=== PATIENT | female | born 1975 | race African-American/Black ===

== ENCOUNTER 2017-09-05 14:27 | Inpatient (IN) | payer OTHER ==
[2017-09-05 15:42] VITALS: BMI 33.8
--- NOTE | 2017-09-05 18:18 | HP ---
Admission ROS [facility] - [facility] Chief Complaint: I WANT TO GO TO REHAB Allergies/Adverse Reactions: Allergies Allergy/AdvReac Type Severity Reaction Status Date / Time No Known Allergies Allergy Verified 09/05/17 17:16 History of Present Illness: 42 YEARS OLD FEMALE WITH LONG HISTORY OF COCAINE NICOTINE DEPENDENCE HAS ASTHMA DIABETES II HYPERTENSION BIPOLAR II KNEES WEAKNESS GERD IS ADMITTED TO REHAB Exam Limitations: No Limitations - Ebola screening Have you traveled outside of the country in the last 21 days: No Have you had contact with anyone from an Ebola affected area: No Have you been sick,other than usual withdrawal symptoms: No Do you have a fever: No - Review of Systems Constitutional: Weight Stable EENT: reports: No Symptoms Reported Respiratory: reports: No Symptoms reported Cardiac: reports: No Symptoms Reported GI: reports: No Symptoms Reported : reports: No Symptoms Reported Musculoskeletal: reports: Joint Pain (KNEES = FELL "FELL TWO MONTHS AGO"), Muscle Weakness (CANE) Integumentary: reports: No Symptoms Reported Neuro: reports: No Symptoms reported Endocrine: reports: No Symptoms Reported Hematology: reports: No Symptoms Reported Psychiatric: reports: Judgement Intact, Orientated x3, Anxious, Depressed Other Systems: Reviewed and Negative Patient History - Patient Medical History Hx Anemia: No Hx Asthma: Yes Hx Chronic Obstructive Pulmonary Disease (COPD): No Hx Cancer: No Hx Cardiac Disorders: No Hx Congestive Heart Failure: No Hx Hypertension: Yes Hx Hypercholesterolemia: No Hx Pacemaker: No HX Cerebrovascular Accident: No Hx Seizures: No Hx Dementia: No Hx Diabetes: Yes Hx Gastrointestinal Disorders: Yes Hx Liver Disease: No Hx Genitourinary Disorders: No Hx Sexually Transmitted Disorders: No Hx Renal Disease (ESRD): No Hx Thyroid Disease: No Hx Human Immunodeficiency Virus (HIV): No Hx Hepatitis C: No Hx Depression: No Hx Suicide Attempt: Yes (2006 CUT WRIST) Hx Bipolar Disorder: Yes Hx Schizophrenia: No - Patient Surgical History Past Surgical History: No - PPD History Previous Implant?: Yes Documented Results: Negative w/o proof Implanted On Prior [facility] Admission?: No PPD to be Administered?: Yes - Reproductive History Patient is a Female of Child Bearing Age (11 -55 yrs old): Yes Last Menstrual Period: 03/06/17 Patient : No - Smoking Cessation Smoking history: Current every day smoker Have you smoked in the past 12 months: Yes Aproximately how many cigarettes per day: 20 Cigars Per Day: 0 Hx Chewing Tobacco Use: No Initiated information on smoking cessation: Yes 'Breaking Loose' booklet given: 09/05/17 - Substance & Tx. History Hx Alcohol Use: No Hx Substance Use: Yes Substance Use Type: Cocaine Hx Substance Use Treatment: Yes (2010) - Substances Abused Cocaine Route: Smoking Frequency: Daily Amount used: 300$ Age of first use: 17 Date of Last Use: 08/22/17 Family Disease History - Family Disease History Family Disease History: CA: Mother (), Other: Father (/KILLED), Mother Admission Physical Exam [facility] - Vital Signs Vital Signs: Vital Signs - 24 hr 09/05/17 15:40 Temperature 96.9 F L Pulse Rate 102 H Respiratory 18 Rate Blood Pressure 104/70 - Physical General Appearance: Yes: No Apparent Distress, Appropriately Dressed, Obese HEENTM: Yes: Hearing grossly Normal, Normal ENT Inspection, Normocephalic, Normal Voice Respiratory: Yes: Chest Non-Tender, Lungs Clear, Normal Breath Sounds, No Respiratory Distress, No Accessory Muscle Use Neck: Yes: Supple, Trachea in good position Breast: Yes: Breasts Symetrical Cardiology: Yes: Regular Rhythm, S1, S2, Tachycardia Abdominal: Yes: Normal Bowel Sounds, Non Tender, Soft Genitourinary: Yes: Within Normal Limits Back: Yes: Normal Inspection Musculoskeletal: Yes: full range of Motion, Gait Steady, Muscle Pain (KNEES PAIN ) Extremities: Yes: Normal Range of Motion (SLOW), Non-Tender Neurological: Yes: Fully Oriented, Alert, Motor Strength 5/5, Normal Response, Depressed Affect Integumentary: Yes: Warm Lymphatic: Yes: Within Normal Limits - Diagnostic (1) Cocaine dependence, uncomplicated Current Visit: Yes Status: Acute (2) Asthma Current Visit: Yes Status: Chronic Qualifiers: Asthma severity: mild Asthma persistence: intermittent Asthma complication type: with status asthmaticus Qualified Code(s): J45.22 - Mild intermittent asthma with status asthmaticus (3) Diabetes mellitus type II, non insulin dependent Current Visit: Yes Status: Chronic (4) Hypertension Current Visit: Yes Status: Chronic Qualifiers: Hypertension type: essential hypertension Qualified Code(s): I10 - Essential (primary) hypertension (5) Bipolar II disorder Current Visit: Yes Status: Suspected (6) GERD (gastroesophageal reflux disease) Current Visit: Yes Status: Chronic Qualifiers: Esophagitis presence: without esophagitis Qualified Code(s): K21.9 - Gastro -esophageal reflux disease without esophagitis (7) Use of cane as ambulatory aid Current Visit: Yes Status: Chronic Comment: KNEES WEAKNESS FROM FALL "FEW MONTHS AGO" (8) Nicotine dependence Current Visit: Yes Status: Acute Qualifiers: Nicotine product type: cigarettes Substance use status: in withdrawal Qualified Code(s): F17.213 - Nicotine dependence, cigarettes, with withdrawal Cleared for Admission [facility] - Detox or Rehab [facility] Level of Care: Observation Bed Detox Regimen/Protocol: Not Applicable Claeared for Rehab Admission: Yes [facility] Breath Alcohol Content Breath Alcohol Content: 0 Urine Pregancy Test - Result Urine Test Results: Negative- NO Line Present Urine Drug Screen - Results Drug Screen Negative: Yes Inpatient Rehab Admission - Initial Determination Are CD services needed?: Yes Free of communicable disease: Yes Not in need of hospitalization: Yes - Rehab Admission Criteria Previous failed treatment: Yes Poor recovery environment: Yes Comorbidities: Yes Lacks judgement: No Patient is meeting Inpatient Rehab admission criteria:: Yes
[2017-09-05] MEDS ORDERED: MENTHOL/PHENOL 1 EACH UD MM PRN (18:21)
[2017-09-05] MEDS ORDERED: LOPERAMIDE HCL 2 MG CAPSULE PO PRN (18:21)
[2017-09-05] MEDS ORDERED: MAG HYDROX/AL HYDROX/SIMETH 30 ML UNIT-DOSE CUP PO PRN (18:21)
[2017-09-05] MEDS ORDERED: guaiFENesin/D-METHORPHAN HB 10 ML UNIT-DOSE CUPS PO PRN (18:21)
[2017-09-05] MEDS ORDERED: MAGNESIUM HYDROX 2400MG/30ML ORAL SUSPENSION 30 ML CUP PO PRN (18:21)
[2017-09-05] MEDS ORDERED: ACETAMINOPHEN 325 MG TABLET (FP) PO PRN (18:21)
[2017-09-05] MEDS ORDERED: MAGNESIUM CITRATE 300 ML BOTTLE PO PRN (18:21)
[2017-09-05] MEDS ORDERED: P-EPHED 60MG/TRIPROLIDI 2.5MG TABLET PO PRN (18:21)
[2017-09-05] MEDS ORDERED: ALBUTEROL SO4 18 GM HFA INHALER IH PRN (18:22)
[2017-09-05] MEDS ORDERED: ALBUTEROL SO4 0.083% IH SOL 2.5 MG/3 ML VIAL.NEB. NEB PRN (18:27)
[2017-09-05] MEDS: THIAMINE HCL 100 MG TABLET (FP) PO SCH (21:32)
[2017-09-05] MEDS: RANITIDINE HCL 150 MG TABLET (FP) PO SCH (21:32)
[2017-09-05] MEDS: QUEtiapine FUMARATE 200 MG TABLET PO SCH (21:32)
[2017-09-05] MEDS: INSULIN SLIDING SCALE (NOVOLOG) 1 VIAL SQ SCH (21:33)
[2017-09-05] MEDS: DIVALPROEX SODIUM 500 MG TABLET E.C. PO SCH (21:34)
[2017-09-05] MEDS: NICOTINE POLACRILEX 4 MG GUM BUC PRN (21:35)
[2017-09-06 02:20] LABS: URINE APPEARANCE CLOUDY; URINE BILIRUBIN NEGATIVE (NEGATIVE); URINE BLOOD NEGATIVE (NEGATIVE); URINE COLOR AMBER; URINE GLUCOSE (UA) NEGATIVE (NEGATIVE); URINE KETONE NEGATIVE (NEGATIVE); URINE NITRITE NEGATIVE (NEGATIVE)
[2017-09-06 02:28] LABS: URINE LEUK ESTERASE 1+ (NEGATIVE); URINE PROTEIN 1+ (NEGATIVE)
[2017-09-06 02:37] LABS: EPI CELLS MODERATE /HPF (FEW); URINE BACTERIA RARE /hpf (NONE SEEN); URINE MUCUS MANY
[2017-09-06] MEDS: INSULIN SLIDING SCALE (NOVOLOG) 1 VIAL SQ SCH ×4 (06:54→21:30)
[2017-09-06] MEDS: metFORMIN HCL 500 MG TABLET (FP) PO SCH (06:54)
--- NOTE | 2017-09-06 09:52 | EKG ---
Test Reason : Blood Pressure : / mmHG Vent. Rate : 083 BPM Atrial Rate : 083 BPM P-R Int : 132 ms QRS Dur : 086 ms QT Int : 398 ms P-R-T Axes : 062 031 043 degrees QTc Int : 467 ms NORMAL SINUS RHYTHM NORMAL ECG NO PREVIOUS ECGS AVAILABLE Confirmed by ISIS DECKER MD ([id number]) on 09/06/2017 9:51:40 AM Referred By: Confirmed By:ISIS DECKER MD
[2017-09-06 09:56] LABS: HEMATOCRIT 38.3 % (32.4-45.2); HEMOGLOBIN 12.1 GM/dL (10.7-15.3); MCH 24.6 pg (25.7-33.7); MCHC 31.7 g/dl (32.0-36.0); MEAN CELL VOLUME 77.5 fl (80-96); MEAN PLT VOLUME 9.2 fl (7.5-11.1); PLATELET COUNT 219 K/MM3 (134-434); RBC 4.94 M/mm3 (3.60-5.2); RDW 16.5 % (11.6-15.6); WHITE BLOOD COUNT 7.3 K/mm3 (4.0-10.0)
[2017-09-06 10:02] LABS: CHLORIDE 101 mmol/L (98-107); POTASSIUM 3.1 mmol/L (3.5-5.1); SODIUM 141 mmol/L (136-145)
[2017-09-06 10:18] LABS: ALBUMIN 3.2 g/dl (3.4-5.0); ALK PHOS 76 U/L (45-117); ANION GAP 7 (8-16); BILIRUBIN,TOTAL 0.3 mg/dL (0.2-1.0); BLOOD UREA NITROGEN 10 mg/dL (7-18); CALCIUM 8.3 mg/dL (8.5-10.1); CO2 33 mmol/L (21-32); CREATININE 0.5 mg/dL (0.55-1.02); GLUCOSE,RANDOM 71 mg/dL (74-106); SGOT/AST 8 U/L (15-37); SGPT/ALT 12 U/L (12-78); TOT PROT 6.3 g/dl (6.4-8.2)
[2017-09-06] MEDS: DIVALPROEX SODIUM 500 MG TABLET E.C. PO SCH ×2 (11:18→21:29)
[2017-09-06] MEDS: PRENATAL VITAMINS W/ FOLIC ACID TABLET (FP) PO SCH (11:18)
[2017-09-06] MEDS: amLODIPine BESYLATE 10 MG TABLET (FP) PO SCH (11:18)
[2017-09-06] MEDS: SERTRALINE HCL 50 MG TABLET (FP) PO SCH (11:18)
[2017-09-06] MEDS: RANITIDINE HCL 150 MG TABLET (FP) PO SCH ×2 (11:18→21:30)
[2017-09-06] MEDS: LISINOPRIL 10 MG TABLET (FP) PO SCH (11:19)
[2017-09-06] MEDS: NICOTINE 21 MG/24 HOURS TOPICAL PATCH TD SCH (11:19)
--- NOTE | 2017-09-06 11:55 | HP ---
Psychiatrist Admission - Data Date of interview: 09/06/17 Admission source: [facility] Identifying data: This is the first admission to [address] [place] [address]; itation for this 42 years old AA mother of 5 grown children,homeless, supported y SSI. Medical History: Significant for DM,GERD,HTN,Chronic arthritis,BA. Psychiatric History: Reports first contact with psychiatrist at 14 years old when she was admitted to [facility] in [facility] due to first psychotic episode.patient was placed on medications but no recollections which ones she was on.She was dx with Bipolar disorder.Patient reports about 15 psychiatric hospitalizations.Most recent was in Aug 2015 to one of the Hospitals in [facility] due to severe depression with suicidal ideas.Patient is under care of psychiatrist at [facility] in [facility].She is on Seroquel 200 mg po hs,Zoloft 100 mg po daily and Depakote 500 mg po bid. Physical/Sexual Abuse/Trauma History: denies any abuse history Vital Signs: Vital Signs - 24 hr 09/05/17 09/05/17 09/06/17 15:40 19:10 00:30 Temperature 96.9 F L 97.7 F Pulse Rate 102 H 90 Respiratory 18 18 18 Rate Blood Pressure 104/70 144/89 09/06/17 09/06/17 09/06/17 03:30 07:11 09:20 Temperature 97.4 F L Pulse Rate 82 97 H Respiratory 20 18 Rate Blood Pressure 136/90 139/99 Allergies/Adverse Reactions: Allergies Allergy/AdvReac Type Severity Reaction Status Date / Time No Known Allergies Allergy Verified 09/05/17 17:16 Date of last physical exam: 09/05/17 Concur with the findings of this exam: Yes - Substance Abuse/Tx History Hx Alcohol Use: Yes (reports drinking since young age) Hx Substance Use: Yes (cocaine /crack since 17 yo,$300 daily) Substance Use Type: Alcohol, Cocaine Hx Substance Use Treatment: Yes (completed group home treatment a few years ago, longest abstinence 4 years) Mental Status Exam - Mental Status Exam Alert and Oriented to: Time, Place, Person Cognitive Function: Grossly Intact Patient Appearance: Unkempt Mood: Sad Affect: Mood Congruent, Constricted Patient Behavior: Fatigued, Cooperative Speech Pattern: Clear Voice Loudness: Mildly Soft/Quiet Thought Process: Goal Oriented Thought Disorder: Being Controlled Hallucinations: Denies Suicidal Ideation: Denies Homicidal Ideation: Denies Insight/Judgement: Fair Sleep: Fair Appetite: Good Muscle strength/Tone: Normal Gait/Station: Normal Psychiatric Findings - Problem List ([place] 1, 2,3) (1) Cocaine dependence, uncomplicated Current Visit: Yes Status: Chronic (2) Asthma Current Visit: Yes Status: Chronic Qualifiers: Asthma severity: mild Asthma persistence: intermittent Asthma complication type: with status asthmaticus Qualified Code(s): J45.22 - Mild intermittent asthma with status asthmaticus (3) Diabetes mellitus type II, non insulin dependent Current Visit: Yes Status: Chronic (4) Hypertension Current Visit: Yes Status: Chronic Qualifiers: Hypertension type: essential hypertension Qualified Code(s): I10 - Essential (primary) hypertension (5) Bipolar II disorder Current Visit: Yes Status: Suspected (6) GERD (gastroesophageal reflux disease) Current Visit: Yes Status: Chronic Qualifiers: Esophagitis presence: without esophagitis Qualified Code(s): K21.9 - Gastro -esophageal reflux disease without esophagitis (7) Nicotine dependence Current Visit: Yes Status: Acute Qualifiers: Nicotine product type: cigarettes Substance use status: in withdrawal Qualified Code(s): F17.213 - Nicotine dependence, cigarettes, with withdrawal (8) Alcohol dependence Current Visit: Yes Status: Chronic - Initial Treatment Plan Initial Treatment Plan: Continue current medications as per plan.Will monitor progress.
[2017-09-06] MEDS: NAPROXEN 500 MG TABLET (FP) PO PRN (21:30)
[2017-09-06] MEDS: THIAMINE HCL 100 MG TABLET (FP) PO SCH (21:30)
[2017-09-06] MEDS: QUEtiapine FUMARATE 200 MG TABLET PO SCH (21:30)
[2017-09-06] MEDS: NICOTINE POLACRILEX 4 MG GUM BUC PRN (21:32)
[2017-09-07] MEDS: INSULIN SLIDING SCALE (NOVOLOG) 1 VIAL SQ SCH ×3 (06:57→17:13)
[2017-09-07] MEDS: metFORMIN HCL 500 MG TABLET (FP) PO SCH (06:57)
[2017-09-07] MEDS: NICOTINE 21 MG/24 HOURS TOPICAL PATCH TD SCH (10:05)
[2017-09-07] MEDS: RANITIDINE HCL 150 MG TABLET (FP) PO SCH ×2 (10:06→21:24)
[2017-09-07] MEDS: DIVALPROEX SODIUM 500 MG TABLET E.C. PO SCH ×2 (10:06→21:23)
[2017-09-07] MEDS: PRENATAL VITAMINS W/ FOLIC ACID TABLET (FP) PO SCH (10:06)
[2017-09-07] MEDS: amLODIPine BESYLATE 10 MG TABLET (FP) PO SCH (10:06)
[2017-09-07] MEDS: LISINOPRIL 10 MG TABLET (FP) PO SCH (10:06)
[2017-09-07] MEDS: SERTRALINE HCL 50 MG TABLET (FP) PO SCH (10:07)
[2017-09-07] MEDS: NICOTINE POLACRILEX 4 MG GUM BUC PRN ×3 (10:08→21:25)
[2017-09-07] MEDS: THIAMINE HCL 100 MG TABLET (FP) PO SCH (21:23)
[2017-09-07] MEDS: QUEtiapine FUMARATE 200 MG TABLET PO SCH (21:24)
[2017-09-08] MEDS: INSULIN SLIDING SCALE (NOVOLOG) 1 VIAL SQ SCH ×2 (06:52→17:05)
[2017-09-08] MEDS: metFORMIN HCL 500 MG TABLET (FP) PO SCH (06:52)
[2017-09-08] MEDS: DIVALPROEX SODIUM 500 MG TABLET E.C. PO SCH ×2 (10:11→21:20)
[2017-09-08] MEDS: NICOTINE 21 MG/24 HOURS TOPICAL PATCH TD SCH (10:12)
[2017-09-08] MEDS: LISINOPRIL 10 MG TABLET (FP) PO SCH (10:12)
[2017-09-08] MEDS: amLODIPine BESYLATE 10 MG TABLET (FP) PO SCH (10:12)
[2017-09-08] MEDS: RANITIDINE HCL 150 MG TABLET (FP) PO SCH ×2 (10:12→21:20)
[2017-09-08] MEDS: PRENATAL VITAMINS W/ FOLIC ACID TABLET (FP) PO SCH (10:12)
[2017-09-08] MEDS: SERTRALINE HCL 50 MG TABLET (FP) PO SCH (10:14)
[2017-09-08] MEDS: NICOTINE POLACRILEX 4 MG GUM BUC PRN ×5 (10:14→21:21)
[2017-09-08] MEDS: NAPROXEN 500 MG TABLET (FP) PO PRN (10:14)
[2017-09-08] MEDS: QUEtiapine FUMARATE 200 MG TABLET PO SCH (21:20)
[2017-09-08] MEDS: THIAMINE HCL 100 MG TABLET (FP) PO SCH (21:20)
[2017-09-09] MEDS: INSULIN SLIDING SCALE (NOVOLOG) 1 VIAL SQ SCH ×2 (06:59→17:14)
[2017-09-09] MEDS: metFORMIN HCL 500 MG TABLET (FP) PO SCH (06:59)
[2017-09-09] MEDS: RANITIDINE HCL 150 MG TABLET (FP) PO SCH ×2 (09:49→21:33)
[2017-09-09] MEDS: DIVALPROEX SODIUM 500 MG TABLET E.C. PO SCH ×2 (09:49→21:33)
[2017-09-09] MEDS: PRENATAL VITAMINS W/ FOLIC ACID TABLET (FP) PO SCH (09:49)
[2017-09-09] MEDS: SERTRALINE HCL 50 MG TABLET (FP) PO SCH (09:49)
[2017-09-09] MEDS: LISINOPRIL 10 MG TABLET (FP) PO SCH (09:50)
[2017-09-09] MEDS: amLODIPine BESYLATE 10 MG TABLET (FP) PO SCH (09:51)
[2017-09-09] MEDS: NICOTINE 21 MG/24 HOURS TOPICAL PATCH TD SCH (09:51)
[2017-09-09] MEDS: NICOTINE POLACRILEX 4 MG GUM BUC PRN ×3 (09:52→21:34)
[2017-09-09] MEDS: THIAMINE HCL 100 MG TABLET (FP) PO SCH (21:33)
[2017-09-09] MEDS: QUEtiapine FUMARATE 200 MG TABLET PO SCH (21:33)
[2017-09-10] MEDS ORDERED: cloNIDine HCL 0.1 MG TABLET PO ONE (06:59)
[2017-09-10] MEDS: INSULIN SLIDING SCALE (NOVOLOG) 1 VIAL SQ SCH ×2 (07:20→17:17)
[2017-09-10] MEDS: metFORMIN HCL 500 MG TABLET (FP) PO SCH (07:20)
[2017-09-10] MEDS: LISINOPRIL 10 MG TABLET (FP) PO SCH (10:42)
[2017-09-10] MEDS: DIVALPROEX SODIUM 500 MG TABLET E.C. PO SCH ×2 (10:42→22:11)
[2017-09-10] MEDS: RANITIDINE HCL 150 MG TABLET (FP) PO SCH ×2 (10:42→22:11)
[2017-09-10] MEDS: PRENATAL VITAMINS W/ FOLIC ACID TABLET (FP) PO SCH (10:42)
[2017-09-10] MEDS: amLODIPine BESYLATE 10 MG TABLET (FP) PO SCH (10:42)
[2017-09-10] MEDS: SERTRALINE HCL 50 MG TABLET (FP) PO SCH (10:42)
[2017-09-10] MEDS: NICOTINE POLACRILEX 4 MG GUM BUC PRN ×2 (10:44→12:44)
[2017-09-10] MEDS: NICOTINE 21 MG/24 HOURS TOPICAL PATCH TD SCH (10:44)
[2017-09-10] MEDS ORDERED: FLUCONAZOLE 50 MG TABLET PO ONE (17:00)
--- NOTE | 2017-09-10 17:27 | PN ---
[facility] Progress Note (SOAP) Subjective: Patient c/o foul smelling (fishy) white, thin vaginal discharge without itching x couple of days. As per patient, she had vaginal yeast infection in the past and having same sxs. Objective: 09/10/17 17:25 Last Vital Signs Temp Pulse Resp BP Pulse Ox 97.6 F 111 H 18 109/69 09/10/17 07:21 09/10/17 10:00 09/10/17 07:21 09/10/17 10:00 Laboratory Tests 09/05/17 09/05/17 09/06/17 20:43 21:32 06:53 WBC RBC Hgb Hct MCV MCH MCHC RDW Plt Count MPV Sodium Potassium Chloride Carbon Dioxide Anion Gap BUN Creatinine Creat Clearance w eGFR POC Glucometer 127 76 Random Glucose Calcium Total Bilirubin AST ALT Alkaline Phosphatase Total Protein Albumin Urine Color [place] Urine Appearance Cloudy Urine pH 7.0 Ur Specific [place] 1.021 Urine Protein 1+ H Urine Glucose (UA) Negative Urine Ketones Negative Urine Blood Negative Urine Nitrite Negative Urine Bilirubin Negative Urine Urobilinogen 2.0 H Ur Leukocyte Esterase Negative Urine WBC (Auto) 24 Urine RBC (Auto) 5 Ur Epithelial Cells Moderate Urine Bacteria Rare Urine Mucus Many Valproic Acid RPR Titer Hepatitis C Antibody HIV 1&2 Antibody Screen HIV P24 Antigen 09/06/17 09/06/17 09/06/17 07:30 07:30 07:30 WBC 7.3 RBC 4.94 Hgb 12.1 Hct 38.3 MCV 77.5 L MCH 24.6 L MCHC 31.7 L RDW 16.5 H Plt Count 219 MPV 9.2 Sodium Potassium Chloride Carbon Dioxide Anion Gap BUN Creatinine Creat Clearance w eGFR POC Glucometer Random Glucose Calcium Total Bilirubin AST ALT Alkaline Phosphatase Total Protein Albumin Urine Color Urine Appearance Urine pH Ur Specific [place] Urine Protein Urine Glucose (UA) Urine Ketones Urine Blood Urine Nitrite Urine Bilirubin Urine Urobilinogen Ur Leukocyte Esterase Urine WBC (Auto) Urine RBC (Auto) Ur Epithelial Cells Urine Bacteria Urine Mucus Valproic Acid 78.654 RPR Titer Hepatitis C Antibody HIV 1&2 Antibody Screen Negative HIV P24 Antigen Negative 09/06/17 09/06/17 09/06/17 07:30 07:30 07:30 WBC RBC Hgb Hct MCV MCH MCHC RDW Plt Count MPV Sodium 141 Potassium 3.1 L Chloride 101 Carbon Dioxide 33 H Anion Gap 7 L BUN 10 Creatinine 0.5 L Creat Clearance w eGFR > 60 POC Glucometer Random Glucose 71 L Calcium 8.3 L Total Bilirubin 0.3 AST 8 L ALT 12 Alkaline Phosphatase 76 Total Protein 6.3 L Albumin 3.2 L Urine Color Urine Appearance Urine pH Ur Specific [place] Urine Protein Urine Glucose (UA) Urine Ketones Urine Blood Urine Nitrite Urine Bilirubin Urine Urobilinogen Ur Leukocyte Esterase Urine WBC (Auto) Urine RBC (Auto) Ur Epithelial Cells Urine Bacteria Urine Mucus Valproic Acid RPR Titer Nonreactive Hepatitis C Antibody <0.1 HIV 1&2 Antibody Screen HIV P24 Antigen 09/06/17 09/07/17 09/07/17 17:23 06:55 11:54 WBC RBC Hgb Hct MCV MCH MCHC RDW Plt Count MPV Sodium Potassium Chloride Carbon Dioxide Anion Gap BUN Creatinine Creat Clearance w eGFR POC Glucometer 100 81 89 Random Glucose Calcium Total Bilirubin AST ALT Alkaline Phosphatase Total Protein Albumin Urine Color Urine Appearance Urine pH Ur Specific [place] Urine Protein Urine Glucose (UA) Urine Ketones Urine Blood Urine Nitrite Urine Bilirubin Urine Urobilinogen Ur Leukocyte Esterase Urine WBC (Auto) Urine RBC (Auto) Ur Epithelial Cells Urine Bacteria Urine Mucus Valproic Acid RPR Titer Hepatitis C Antibody HIV 1&2 Antibody Screen HIV P24 Antigen 09/07/17 09/08/17 09/08/17 17:12 06:51 17:04 WBC RBC Hgb Hct MCV MCH MCHC RDW Plt Count MPV Sodium Potassium Chloride Carbon Dioxide Anion Gap BUN Creatinine Creat Clearance w eGFR POC Glucometer 99 87 84 Random Glucose Calcium Total Bilirubin AST ALT Alkaline Phosphatase Total Protein Albumin Urine Color Urine Appearance Urine pH Ur Specific [place] Urine Protein Urine Glucose (UA) Urine Ketones Urine Blood Urine Nitrite Urine Bilirubin Urine Urobilinogen Ur Leukocyte Esterase Urine WBC (Auto) Urine RBC (Auto) Ur Epithelial Cells Urine Bacteria Urine Mucus Valproic Acid RPR Titer Hepatitis C Antibody HIV 1&2 Antibody Screen HIV P24 Antigen 09/09/17 09/09/17 09/10/17 06:58 17:14 07:19 WBC RBC Hgb Hct MCV MCH MCHC RDW Plt Count MPV Sodium Potassium Chloride Carbon Dioxide Anion Gap BUN Creatinine Creat Clearance w eGFR POC Glucometer 78 129 92 Random Glucose Calcium Total Bilirubin AST ALT Alkaline Phosphatase Total Protein Albumin Urine Color Urine Appearance Urine pH Ur Specific [place] Urine Protein Urine Glucose (UA) Urine Ketones Urine Blood Urine Nitrite Urine Bilirubin Urine Urobilinogen Ur Leukocyte Esterase Urine WBC (Auto) Urine RBC (Auto) Ur Epithelial Cells Urine Bacteria Urine Mucus Valproic Acid RPR Titer Hepatitis C Antibody HIV 1&2 Antibody Screen HIV P24 Antigen Labs noted: K 3.1 Assessment: 09/10/17 17:27 Patient seen for vaginal candidiasis; noted with Hypokalemia Plan: Vaginal candidiasis: diflucan 150mg PO x 1 dose (patient prefers diflucan instead of vaginal cream) Hypokalemia: repeat K level in AM
[2017-09-10] MEDS: THIAMINE HCL 100 MG TABLET (FP) PO SCH (22:11)
[2017-09-10] MEDS: QUEtiapine FUMARATE 200 MG TABLET PO SCH (22:11)
[2017-09-11] MEDS: metFORMIN HCL 500 MG TABLET (FP) PO SCH ×2 (06:56→07:01)
[2017-09-11] MEDS: INSULIN SLIDING SCALE (NOVOLOG) 1 VIAL SQ SCH ×2 (07:07→18:00)
[2017-09-11] MEDS: amLODIPine BESYLATE 10 MG TABLET (FP) PO SCH (09:59)
[2017-09-11] MEDS: NAPROXEN 500 MG TABLET (FP) PO PRN (09:59)
[2017-09-11] MEDS: RANITIDINE HCL 150 MG TABLET (FP) PO SCH ×2 (09:59→21:18)
[2017-09-11] MEDS: PRENATAL VITAMINS W/ FOLIC ACID TABLET (FP) PO SCH (09:59)
[2017-09-11] MEDS: SERTRALINE HCL 50 MG TABLET (FP) PO SCH (09:59)
[2017-09-11] MEDS: NICOTINE 21 MG/24 HOURS TOPICAL PATCH TD SCH (10:00)
[2017-09-11] MEDS: LISINOPRIL 10 MG TABLET (FP) PO SCH (10:00)
[2017-09-11] MEDS: NICOTINE POLACRILEX 4 MG GUM BUC PRN ×3 (10:00→21:19)
[2017-09-11] MEDS: DIVALPROEX SODIUM 500 MG TABLET E.C. PO SCH ×2 (10:00→21:18)
[2017-09-11] MEDS ORDERED: PT OWN MED DRAWER 7, Y5N ONE (12:10)
[2017-09-11] MEDS: QUEtiapine FUMARATE 200 MG TABLET PO SCH (21:18)
[2017-09-11] MEDS: THIAMINE HCL 100 MG TABLET (FP) PO SCH (21:18)
[2017-09-12] MEDS: metFORMIN HCL 500 MG TABLET (FP) PO SCH (07:14)
[2017-09-12] MEDS: INSULIN SLIDING SCALE (NOVOLOG) 1 VIAL SQ SCH ×2 (07:15→17:03)
[2017-09-12] MEDS: NICOTINE POLACRILEX 4 MG GUM BUC PRN ×4 (07:15→21:16)
[2017-09-12] MEDS: DIVALPROEX SODIUM 500 MG TABLET E.C. PO SCH ×2 (09:33→21:15)
[2017-09-12] MEDS: RANITIDINE HCL 150 MG TABLET (FP) PO SCH ×2 (09:33→21:14)
[2017-09-12] MEDS: PRENATAL VITAMINS W/ FOLIC ACID TABLET (FP) PO SCH (09:33)
[2017-09-12] MEDS: amLODIPine BESYLATE 10 MG TABLET (FP) PO SCH (09:33)
[2017-09-12] MEDS: SERTRALINE HCL 50 MG TABLET (FP) PO SCH (09:33)
[2017-09-12] MEDS: LISINOPRIL 10 MG TABLET (FP) PO SCH (09:34)
[2017-09-12] MEDS: NICOTINE 21 MG/24 HOURS TOPICAL PATCH TD SCH (10:03)
[2017-09-12] MEDS ORDERED: COLLOIDAL OATMEAL 1 BAR EACH TP PRN (14:16)
--- NOTE | 2017-09-12 14:49 | PN ---
S Progress Note (SOAP) Subjective: Patient c/o burning on urination accompanied by urgency and frequency. She also c/o dry skin and requesting moisturizer. As per patient urinary symptoms began 2 days ago and that she is now experiencing urinary incontinence and denies any h/o incontinence. Objective: 09/12/17 14:47 Last Vital Signs Temp Pulse Resp BP Pulse Ox 97.2 F L 109 H 18 120/83 09/12/17 07:28 09/12/17 09:34 09/12/17 07:28 09/12/17 09:34 Laboratory Tests 09/05/17 09/05/17 09/06/17 20:43 21:32 06:53 WBC RBC Hgb Hct MCV MCH MCHC RDW Plt Count MPV Sodium Potassium Chloride Carbon Dioxide Anion Gap BUN Creatinine Creat Clearance w eGFR POC Glucometer 127 76 Random Glucose Calcium Total Bilirubin AST ALT Alkaline Phosphatase Total Protein Albumin Urine Color [place] Urine Appearance Cloudy Urine pH 7.0 Ur Specific [employer] [place] 1.021 Urine Protein 1+ H Urine Glucose (UA) Negative Urine Ketones Negative Urine Blood Negative Urine Nitrite Negative Urine Bilirubin Negative Urine Urobilinogen 2.0 H Ur Leukocyte Esterase Negative Urine WBC (Auto) 24 Urine RBC (Auto) 5 Ur Epithelial Cells Moderate Urine Bacteria Rare Urine Mucus Many Valproic Acid RPR Titer Hepatitis C Antibody HIV 1&2 Antibody Screen HIV P24 Antigen 09/06/17 09/06/17 09/06/17 07:30 07:30 07:30 WBC 7.3 RBC 4.94 Hgb 12.1 Hct 38.3 MCV 77.5 L MCH 24.6 L MCHC 31.7 L RDW 16.5 H Plt Count 219 MPV 9.2 Sodium Potassium Chloride Carbon Dioxide Anion Gap BUN Creatinine Creat Clearance w eGFR POC Glucometer Random Glucose Calcium Total Bilirubin AST ALT Alkaline Phosphatase Total Protein Albumin Urine Color Urine Appearance Urine pH Ur Specific [place] Urine Protein Urine Glucose (UA) Urine Ketones Urine Blood Urine Nitrite Urine Bilirubin Urine Urobilinogen Ur Leukocyte Esterase Urine WBC (Auto) Urine RBC (Auto) Ur Epithelial Cells Urine Bacteria Urine Mucus Valproic Acid 78.654 RPR Titer Hepatitis C Antibody HIV 1&2 Antibody Screen Negative HIV P24 Antigen Negative 09/06/17 09/06/17 09/06/17 07:30 07:30 07:30 WBC RBC Hgb Hct MCV MCH MCHC RDW Plt Count MPV Sodium 141 Potassium 3.1 L Chloride 101 Carbon Dioxide 33 H Anion Gap 7 L BUN 10 Creatinine 0.5 L Creat Clearance w eGFR > 60 POC Glucometer Random Glucose 71 L Calcium 8.3 L Total Bilirubin 0.3 AST 8 L ALT 12 Alkaline Phosphatase 76 Total Protein 6.3 L Albumin 3.2 L Urine Color Urine Appearance Urine pH Ur Specific [place] Urine Protein Urine Glucose (UA) Urine Ketones Urine Blood Urine Nitrite Urine Bilirubin Urine Urobilinogen Ur Leukocyte Esterase Urine WBC (Auto) Urine RBC (Auto) Ur Epithelial Cells Urine Bacteria Urine Mucus Valproic Acid RPR Titer Nonreactive Hepatitis C Antibody <0.1 HIV 1&2 Antibody Screen HIV P24 Antigen 09/06/17 09/07/17 09/07/17 17:23 06:55 11:54 WBC RBC Hgb Hct MCV MCH MCHC RDW Plt Count MPV Sodium Potassium Chloride Carbon Dioxide Anion Gap BUN Creatinine Creat Clearance w eGFR POC Glucometer 100 81 89 Random Glucose Calcium Total Bilirubin AST ALT Alkaline Phosphatase Total Protein Albumin Urine Color Urine Appearance Urine pH Ur Specific [place] Urine Protein Urine Glucose (UA) Urine Ketones Urine Blood Urine Nitrite Urine Bilirubin Urine Urobilinogen Ur Leukocyte Esterase Urine WBC (Auto) Urine RBC (Auto) Ur Epithelial Cells Urine Bacteria Urine Mucus Valproic Acid RPR Titer Hepatitis C Antibody HIV 1&2 Antibody Screen HIV P24 Antigen 09/07/17 09/08/17 09/08/17 17:12 06:51 17:04 WBC RBC Hgb Hct MCV MCH MCHC RDW Plt Count MPV Sodium Potassium Chloride Carbon Dioxide Anion Gap BUN Creatinine Creat Clearance w eGFR POC Glucometer 99 87 84 Random Glucose Calcium Total Bilirubin AST ALT Alkaline Phosphatase Total Protein Albumin Urine Color Urine Appearance Urine pH Ur Specific [place] Urine Protein Urine Glucose (UA) Urine Ketones Urine Blood Urine Nitrite Urine Bilirubin Urine Urobilinogen Ur Leukocyte Esterase Urine WBC (Auto) Urine RBC (Auto) Ur Epithelial Cells Urine Bacteria Urine Mucus Valproic Acid RPR Titer Hepatitis C Antibody HIV 1&2 Antibody Screen HIV P24 Antigen 09/09/17 09/09/17 09/10/17 06:58 17:14 07:19 WBC RBC Hgb Hct MCV MCH MCHC RDW Plt Count MPV Sodium Potassium Chloride Carbon Dioxide Anion Gap BUN Creatinine Creat Clearance w eGFR POC Glucometer 78 129 92 Random Glucose Calcium Total Bilirubin AST ALT Alkaline Phosphatase Total Protein Albumin Urine Color Urine Appearance Urine pH Ur Specific [place] Urine Protein Urine Glucose (UA) Urine Ketones Urine Blood Urine Nitrite Urine Bilirubin Urine Urobilinogen Ur Leukocyte Esterase Urine WBC (Auto) Urine RBC (Auto) Ur Epithelial Cells Urine Bacteria Urine Mucus Valproic Acid RPR Titer Hepatitis C Antibody HIV 1&2 Antibody Screen HIV P24 Antigen 09/10/17 09/11/17 09/11/17 17:16 06:59 07:30 WBC RBC Hgb Hct MCV MCH MCHC RDW Plt Count MPV Sodium Potassium 3.7 Chloride Carbon Dioxide Anion Gap BUN Creatinine Creat Clearance w eGFR POC Glucometer 217 87 Random Glucose Calcium Total Bilirubin AST ALT Alkaline Phosphatase Total Protein Albumin Urine Color Urine Appearance Urine pH Ur Specific [place] Urine Protein Urine Glucose (UA) Urine Ketones Urine Blood Urine Nitrite Urine Bilirubin Urine Urobilinogen Ur Leukocyte Esterase Urine WBC (Auto) Urine RBC (Auto) Ur Epithelial Cells Urine Bacteria Urine Mucus Valproic Acid RPR Titer Hepatitis C Antibody HIV 1&2 Antibody Screen HIV P24 Antigen 09/11/17 09/12/17 17:23 07:13 WBC RBC Hgb Hct MCV MCH MCHC RDW Plt Count MPV Sodium Potassium Chloride Carbon Dioxide Anion Gap BUN Creatinine Creat Clearance w eGFR POC Glucometer 94 88 Random Glucose Calcium Total Bilirubin AST ALT Alkaline Phosphatase Total Protein Albumin Urine Color Urine Appearance Urine pH Ur Specific [place] Urine Protein Urine Glucose (UA) Urine Ketones Urine Blood Urine Nitrite Urine Bilirubin Urine Urobilinogen Ur Leukocyte Esterase Urine WBC (Auto) Urine RBC (Auto) Ur Epithelial Cells Urine Bacteria Urine Mucus Valproic Acid RPR Titer Hepatitis C Antibody HIV 1&2 Antibody Screen HIV P24 Antigen Labs noted Assessment: 09/12/17 14:48 Patient seen for UTI Plan: Acute UTI, complicated: encouraged to drink lots of water and to empty bladder when feels the urge to do so; send UA, C&S to rule out UTI; provide diaper prn urinary incontinence, start cipro 500 mg PO bid x 7 days
[2017-09-12] MEDS ORDERED: PT OWN MED DRAWER 7, Y5N ONE (15:12)
[2017-09-12] MEDS ORDERED: LEVOFLOXACIN 500 MG TABLET (FP) PO SCH (15:30)
[2017-09-12] MEDS: THIAMINE HCL 100 MG TABLET (FP) PO SCH (21:14)
[2017-09-12] MEDS: QUEtiapine FUMARATE 200 MG TABLET PO SCH (21:14)
[2017-09-12] MEDS: LEVOFLOXACIN 500 MG TABLET (FP) PO SCH (21:14)
[2017-09-12] MEDS ORDERED: CIPROFLOXACIN 500 MG TABLET (RESTRICTED TO ID) PO SCH (22:00)
[2017-09-13] MEDS: amLODIPine BESYLATE 10 MG TABLET (FP) PO SCH ×2 (07:16→10:15)
[2017-09-13] MEDS: NICOTINE POLACRILEX 4 MG GUM BUC PRN ×2 (07:17→10:16)
[2017-09-13] MEDS: metFORMIN HCL 500 MG TABLET (FP) PO SCH (07:17)
[2017-09-13] MEDS: LEVOFLOXACIN 500 MG TABLET (FP) PO SCH (07:17)
[2017-09-13] MEDS: INSULIN SLIDING SCALE (NOVOLOG) 1 VIAL SQ SCH ×2 (07:19→17:29)
[2017-09-13] MEDS: SERTRALINE HCL 50 MG TABLET (FP) PO SCH (10:13)
[2017-09-13] MEDS: DIVALPROEX SODIUM 500 MG TABLET E.C. PO SCH ×2 (10:13→21:32)
[2017-09-13] MEDS: PRENATAL VITAMINS W/ FOLIC ACID TABLET (FP) PO SCH (10:13)
[2017-09-13] MEDS: RANITIDINE HCL 150 MG TABLET (FP) PO SCH ×2 (10:13→21:32)
[2017-09-13] MEDS: LISINOPRIL 10 MG TABLET (FP) PO SCH (10:13)
[2017-09-13] MEDS: NICOTINE 21 MG/24 HOURS TOPICAL PATCH TD SCH (10:15)
[2017-09-13 16:59] LABS: URINE APPEARANCE CLOUDY; URINE BLOOD NEGATIVE (NEGATIVE); URINE COLOR AMBER; URINE GLUCOSE (UA) NEGATIVE (NEGATIVE); URINE KETONE TRACE (NEGATIVE); URINE NITRITE NEGATIVE (NEGATIVE)
[2017-09-13 17:06] LABS: URINE LEUK ESTERASE 3+ (NEGATIVE); URINE PROTEIN 2+ (NEGATIVE)
[2017-09-13 17:27] LABS: CALCIUM OXALATE CRYSTALS RARE /hpf (NONE SEEN); EPI CELLS MODERATE /HPF (FEW); URINE BACTERIA FEW /hpf (NONE SEEN); URINE HYALINE CAST 134 /lpf; URINE MUCUS MODERATE
[2017-09-13] MEDS: QUEtiapine FUMARATE 200 MG TABLET PO SCH (21:32)
[2017-09-13] MEDS: THIAMINE HCL 100 MG TABLET (FP) PO SCH (21:32)
[2017-09-14] MEDS: LEVOFLOXACIN 500 MG TABLET (FP) PO SCH (06:47)
[2017-09-14] MEDS: INSULIN SLIDING SCALE (NOVOLOG) 1 VIAL SQ SCH ×2 (07:08→17:22)
[2017-09-14] MEDS: metFORMIN HCL 500 MG TABLET (FP) PO SCH (08:29)
[2017-09-14] MEDS: NICOTINE POLACRILEX 4 MG GUM BUC PRN ×3 (08:29→17:45)
[2017-09-14] MEDS: NICOTINE 21 MG/24 HOURS TOPICAL PATCH TD SCH (10:00)
[2017-09-14] MEDS: amLODIPine BESYLATE 10 MG TABLET (FP) PO SCH (10:01)
[2017-09-14] MEDS: SERTRALINE HCL 50 MG TABLET (FP) PO SCH (10:01)
[2017-09-14] MEDS: DIVALPROEX SODIUM 500 MG TABLET E.C. PO SCH ×2 (10:01→21:30)
[2017-09-14] MEDS: PRENATAL VITAMINS W/ FOLIC ACID TABLET (FP) PO SCH (10:01)
[2017-09-14] MEDS: RANITIDINE HCL 150 MG TABLET (FP) PO SCH ×2 (10:01→21:30)
[2017-09-14] MEDS: LISINOPRIL 10 MG TABLET (FP) PO SCH (10:01)
[2017-09-14] MEDS: AMMONIUM LACTATE 12% LOTION 225 GM BOTTLE TP PRN (10:02)
[2017-09-14] MEDS: QUEtiapine FUMARATE 200 MG TABLET PO SCH (21:30)
[2017-09-14] MEDS: THIAMINE HCL 100 MG TABLET (FP) PO SCH (21:30)
[2017-09-15] MEDS: NICOTINE POLACRILEX 4 MG GUM BUC PRN ×3 (07:18→17:16)
[2017-09-15] MEDS: LEVOFLOXACIN 500 MG TABLET (FP) PO SCH (07:18)
[2017-09-15] MEDS: INSULIN SLIDING SCALE (NOVOLOG) 1 VIAL SQ SCH ×2 (07:19→17:15)
[2017-09-15] MEDS: metFORMIN HCL 500 MG TABLET (FP) PO SCH (07:20)
[2017-09-15] MEDS: NICOTINE 21 MG/24 HOURS TOPICAL PATCH TD SCH (09:55)
[2017-09-15] MEDS: LISINOPRIL 10 MG TABLET (FP) PO SCH (09:56)
[2017-09-15] MEDS: PRENATAL VITAMINS W/ FOLIC ACID TABLET (FP) PO SCH (09:56)
[2017-09-15] MEDS: DIVALPROEX SODIUM 500 MG TABLET E.C. PO SCH ×2 (09:56→21:24)
[2017-09-15] MEDS: SERTRALINE HCL 50 MG TABLET (FP) PO SCH (09:56)
[2017-09-15] MEDS: AMMONIUM LACTATE 12% LOTION 225 GM BOTTLE TP PRN (09:56)
[2017-09-15] MEDS: RANITIDINE HCL 150 MG TABLET (FP) PO SCH ×2 (09:56→21:24)
[2017-09-15] MEDS: amLODIPine BESYLATE 10 MG TABLET (FP) PO SCH (09:57)
[2017-09-15] MEDS ORDERED: PT OWN MED DRAWER 7, Y5N ONE (19:41)
[2017-09-15] MEDS: THIAMINE HCL 100 MG TABLET (FP) PO SCH (21:24)
[2017-09-15] MEDS: QUEtiapine FUMARATE 200 MG TABLET PO SCH (21:24)
[2017-09-16] MEDS: LEVOFLOXACIN 500 MG TABLET (FP) PO SCH (06:50)
[2017-09-16] MEDS: INSULIN SLIDING SCALE (NOVOLOG) 1 VIAL SQ SCH ×2 (06:51→17:01)
[2017-09-16] MEDS: metFORMIN HCL 500 MG TABLET (FP) PO SCH (06:52)
[2017-09-16] MEDS: amLODIPine BESYLATE 10 MG TABLET (FP) PO SCH (10:19)
[2017-09-16] MEDS: DIVALPROEX SODIUM 500 MG TABLET E.C. PO SCH ×2 (10:19→21:26)
[2017-09-16] MEDS: LISINOPRIL 10 MG TABLET (FP) PO SCH (10:19)
[2017-09-16] MEDS: PRENATAL VITAMINS W/ FOLIC ACID TABLET (FP) PO SCH (10:19)
[2017-09-16] MEDS: RANITIDINE HCL 150 MG TABLET (FP) PO SCH ×2 (10:19→21:26)
[2017-09-16] MEDS: SERTRALINE HCL 50 MG TABLET (FP) PO SCH (10:19)
[2017-09-16] MEDS: NICOTINE 21 MG/24 HOURS TOPICAL PATCH TD SCH (10:19)
--- NOTE | 2017-09-16 13:48 | PN ---
[facility] Progress Note (SOAP) Subjective: c/o poain in legs requeting support stockings Objective: 09/16/17 13:46 Vital Signs - 8 hr 09/16/17 09/16/17 06:44 09:04 Temperature 98.2 F Pulse Rate 80 91 H Respiratory 18 Rate Blood Pressure 112/74 140/92 Laboratory Tests 09/05/17 09/05/17 09/06/17 20:43 21:32 06:53 WBC RBC Hgb Hct MCV MCH MCHC RDW Plt Count MPV Sodium Potassium Chloride Carbon Dioxide Anion Gap BUN Creatinine Creat Clearance w eGFR POC Glucometer 127 76 Random Glucose Calcium Total Bilirubin AST ALT Alkaline Phosphatase Total Protein Albumin Urine Color [place] Urine Appearance Cloudy Urine pH 7.0 Ur Specific [place] 1.021 Urine Protein 1+ H Urine Glucose (UA) Negative Urine Ketones Negative Urine Blood Negative Urine Nitrite Negative Urine Bilirubin Negative Urine Urobilinogen 2.0 H Ur Leukocyte Esterase Negative Urine WBC (Auto) 24 Urine RBC (Auto) 5 Ur Epithelial Cells Moderate Calcium Oxalate Crystal Urine Bacteria Rare Hyaline Casts Urine Mucus Many Valproic Acid RPR Titer Hepatitis C Antibody HIV 1&2 Antibody Screen HIV P24 Antigen 09/06/17 09/06/17 09/06/17 07:30 07:30 07:30 WBC 7.3 RBC 4.94 Hgb 12.1 Hct 38.3 MCV 77.5 L MCH 24.6 L MCHC 31.7 L RDW 16.5 H Plt Count 219 MPV 9.2 Sodium Potassium Chloride Carbon Dioxide Anion Gap BUN Creatinine Creat Clearance w eGFR POC Glucometer Random Glucose Calcium Total Bilirubin AST ALT Alkaline Phosphatase Total Protein Albumin Urine Color Urine Appearance Urine pH Ur Specific [place] Urine Protein Urine Glucose (UA) Urine Ketones Urine Blood Urine Nitrite Urine Bilirubin Urine Urobilinogen Ur Leukocyte Esterase Urine WBC (Auto) Urine RBC (Auto) Ur Epithelial Cells Calcium Oxalate Crystal Urine Bacteria Hyaline Casts Urine Mucus Valproic Acid 78.654 RPR Titer Hepatitis C Antibody HIV 1&2 Antibody Screen Negative HIV P24 Antigen Negative 09/06/17 09/06/17 09/06/17 07:30 07:30 07:30 WBC RBC Hgb Hct MCV MCH MCHC RDW Plt Count MPV Sodium 141 Potassium 3.1 L Chloride 101 Carbon Dioxide 33 H Anion Gap 7 L BUN 10 Creatinine 0.5 L Creat Clearance w eGFR > 60 POC Glucometer Random Glucose 71 L Calcium 8.3 L Total Bilirubin 0.3 AST 8 L ALT 12 Alkaline Phosphatase 76 Total Protein 6.3 L Albumin 3.2 L Urine Color Urine Appearance Urine pH Ur Specific [place] Urine Protein Urine Glucose (UA) Urine Ketones Urine Blood Urine Nitrite Urine Bilirubin Urine Urobilinogen Ur Leukocyte Esterase Urine WBC (Auto) Urine RBC (Auto) Ur Epithelial Cells Calcium Oxalate Crystal Urine Bacteria Hyaline Casts Urine Mucus Valproic Acid RPR Titer Nonreactive Hepatitis C Antibody <0.1 HIV 1&2 Antibody Screen HIV P24 Antigen 09/06/17 09/07/17 09/07/17 17:23 06:55 11:54 WBC RBC Hgb Hct MCV MCH MCHC RDW Plt Count MPV Sodium Potassium Chloride Carbon Dioxide Anion Gap BUN Creatinine Creat Clearance w eGFR POC Glucometer 100 81 89 Random Glucose Calcium Total Bilirubin AST ALT Alkaline Phosphatase Total Protein Albumin Urine Color Urine Appearance Urine pH Ur Specific [place] Urine Protein Urine Glucose (UA) Urine Ketones Urine Blood Urine Nitrite Urine Bilirubin Urine Urobilinogen Ur Leukocyte Esterase Urine WBC (Auto) Urine RBC (Auto) Ur Epithelial Cells Calcium Oxalate Crystal Urine Bacteria Hyaline Casts Urine Mucus Valproic Acid RPR Titer Hepatitis C Antibody HIV 1&2 Antibody Screen HIV P24 Antigen 09/07/17 09/08/17 09/08/17 17:12 06:51 17:04 WBC RBC Hgb Hct MCV MCH MCHC RDW Plt Count MPV Sodium Potassium Chloride Carbon Dioxide Anion Gap BUN Creatinine Creat Clearance w eGFR POC Glucometer 99 87 84 Random Glucose Calcium Total Bilirubin AST ALT Alkaline Phosphatase Total Protein Albumin Urine Color Urine Appearance Urine pH Ur Specific [place] Urine Protein Urine Glucose (UA) Urine Ketones Urine Blood Urine Nitrite Urine Bilirubin Urine Urobilinogen Ur Leukocyte Esterase Urine WBC (Auto) Urine RBC (Auto) Ur Epithelial Cells Calcium Oxalate Crystal Urine Bacteria Hyaline Casts Urine Mucus Valproic Acid RPR Titer Hepatitis C Antibody HIV 1&2 Antibody Screen HIV P24 Antigen 09/09/17 09/09/17 09/10/17 06:58 17:14 07:19 WBC RBC Hgb Hct MCV MCH MCHC RDW Plt Count MPV Sodium Potassium Chloride Carbon Dioxide Anion Gap BUN Creatinine Creat Clearance w eGFR POC Glucometer 78 129 92 Random Glucose Calcium Total Bilirubin AST ALT Alkaline Phosphatase Total Protein Albumin Urine Color Urine Appearance Urine pH Ur Specific [place] Urine Protein Urine Glucose (UA) Urine Ketones Urine Blood Urine Nitrite Urine Bilirubin Urine Urobilinogen Ur Leukocyte Esterase Urine WBC (Auto) Urine RBC (Auto) Ur Epithelial Cells Calcium Oxalate Crystal Urine Bacteria Hyaline Casts Urine Mucus Valproic Acid RPR Titer Hepatitis C Antibody HIV 1&2 Antibody Screen HIV P24 Antigen 09/10/17 09/11/17 09/11/17 17:16 06:59 07:30 WBC RBC Hgb Hct MCV MCH MCHC RDW Plt Count MPV Sodium Potassium 3.7 Chloride Carbon Dioxide Anion Gap BUN Creatinine Creat Clearance w eGFR POC Glucometer 217 87 Random Glucose Calcium Total Bilirubin AST ALT Alkaline Phosphatase Total Protein Albumin Urine Color Urine Appearance Urine pH Ur Specific [place] Urine Protein Urine Glucose (UA) Urine Ketones Urine Blood Urine Nitrite Urine Bilirubin Urine Urobilinogen Ur Leukocyte Esterase Urine WBC (Auto) Urine RBC (Auto) Ur Epithelial Cells Calcium Oxalate Crystal Urine Bacteria Hyaline Casts Urine Mucus Valproic Acid RPR Titer Hepatitis C Antibody HIV 1&2 Antibody Screen HIV P24 Antigen 09/11/17 09/12/17 09/12/17 17:23 07:13 17:02 WBC RBC Hgb Hct MCV MCH MCHC RDW Plt Count MPV Sodium Potassium Chloride Carbon Dioxide Anion Gap BUN Creatinine Creat Clearance w eGFR POC Glucometer 94 88 99 Random Glucose Calcium Total Bilirubin AST ALT Alkaline Phosphatase Total Protein Albumin Urine Color Urine Appearance Urine pH Ur Specific [place] Urine Protein Urine Glucose (UA) Urine Ketones Urine Blood Urine Nitrite Urine Bilirubin Urine Urobilinogen Ur Leukocyte Esterase Urine WBC (Auto) Urine RBC (Auto) Ur Epithelial Cells Calcium Oxalate Crystal Urine Bacteria Hyaline Casts Urine Mucus Valproic Acid RPR Titer Hepatitis C Antibody HIV 1&2 Antibody Screen HIV P24 Antigen 09/13/17 09/13/17 09/13/17 07:00 15:00 17:16 WBC RBC Hgb Hct MCV MCH MCHC RDW Plt Count MPV Sodium Potassium Chloride Carbon Dioxide Anion Gap BUN Creatinine Creat Clearance w eGFR POC Glucometer 90 82 Random Glucose Calcium Total Bilirubin AST ALT Alkaline Phosphatase Total Protein Albumin Urine Color [place] Urine Appearance Cloudy Urine pH 5.0 D Ur Specific [place] 1.027 Urine Protein 2+ H Urine Glucose (UA) Negative Urine Ketones Trace H Urine Blood Negative Urine Nitrite Negative Urine Bilirubin 2.0 Urine Urobilinogen 2.0 H Ur Leukocyte Esterase 3+ H D Urine WBC (Auto) 26 Urine RBC (Auto) 16 Ur Epithelial Cells Moderate Calcium Oxalate Crystal Rare Urine Bacteria Few Hyaline Casts 134 Urine Mucus Moderate Valproic Acid RPR Titer Hepatitis C Antibody HIV 1&2 Antibody Screen HIV P24 Antigen 09/14/17 09/14/17 09/15/17 06:46 17:22 07:17 WBC RBC Hgb Hct MCV MCH MCHC RDW Plt Count MPV Sodium Potassium Chloride Carbon Dioxide Anion Gap BUN Creatinine Creat Clearance w eGFR POC Glucometer 87 83 78 Random Glucose Calcium Total Bilirubin AST ALT Alkaline Phosphatase Total Protein Albumin Urine Color Urine Appearance Urine pH Ur Specific [place] Urine Protein Urine Glucose (UA) Urine Ketones Urine Blood Urine Nitrite Urine Bilirubin Urine Urobilinogen Ur Leukocyte Esterase Urine WBC (Auto) Urine RBC (Auto) Ur Epithelial Cells Calcium Oxalate Crystal Urine Bacteria Hyaline Casts Urine Mucus Valproic Acid RPR Titer Hepatitis C Antibody HIV 1&2 Antibody Screen HIV P24 Antigen 09/15/17 09/16/17 17:15 06:49 WBC RBC Hgb Hct MCV MCH MCHC RDW Plt Count MPV Sodium Potassium Chloride Carbon Dioxide Anion Gap BUN Creatinine Creat Clearance w eGFR POC Glucometer 114 105 Random Glucose Calcium Total Bilirubin AST ALT Alkaline Phosphatase Total Protein Albumin Urine Color Urine Appearance Urine pH Ur Specific [place] Urine Protein Urine Glucose (UA) Urine Ketones Urine Blood Urine Nitrite Urine Bilirubin Urine Urobilinogen Ur Leukocyte Esterase Urine WBC (Auto) Urine RBC (Auto) Ur Epithelial Cells Calcium Oxalate Crystal Urine Bacteria Hyaline Casts Urine Mucus Valproic Acid RPR Titer Hepatitis C Antibody HIV 1&2 Antibody Screen HIV P24 Antigen hypokalemia,hypoalbuminemia, 11+ pitting bilaterally both legs Assessment: 09/16/17 13:47 aveeno soap, support stocking, supplement k, repeat labs
[2017-09-16] MEDS: GABAPENTIN 100 MG CAPSULE (FP) PO SCH ×2 (16:09→21:26)
[2017-09-16] MEDS: NICOTINE POLACRILEX 4 MG GUM BUC PRN (16:10)
[2017-09-16] MEDS ORDERED: INSULIN (NOVOLOG) ASPART 100 UNITS/ML 10ML VIAL ONE (16:56)
[2017-09-16] MEDS: FERROUS SO4 325 MG TABLET (FP) PO SCH (17:00)
[2017-09-16] MEDS: POTASSIUM CHLORIDE TABS 20 MEQ TABLET.ER (FP) PO SCH (17:01)
[2017-09-16] MEDS: QUEtiapine FUMARATE 200 MG TABLET PO SCH (21:26)
[2017-09-16] MEDS: THIAMINE HCL 100 MG TABLET (FP) PO SCH (21:26)
[2017-09-16] MEDS: DOCUSATE SODIUM 100 MG CAPSULE (FP) PO SCH (21:27)
[2017-09-17] MEDS: GABAPENTIN 100 MG CAPSULE (FP) PO SCH ×3 (06:40→21:23)
[2017-09-17] MEDS: metFORMIN HCL 500 MG TABLET (FP) PO SCH (06:40)
[2017-09-17] MEDS: INSULIN SLIDING SCALE (NOVOLOG) 1 VIAL SQ SCH ×2 (06:40→17:10)
[2017-09-17] MEDS: NICOTINE POLACRILEX 4 MG GUM BUC PRN ×4 (06:41→21:24)
[2017-09-17] MEDS: FERROUS SO4 325 MG TABLET (FP) PO SCH ×3 (07:39→17:11)
[2017-09-17] MEDS ORDERED: PT OWN MED DRAWER 7, Y5N ONE ×2 (08:37→12:06)
[2017-09-17 10:21] LABS: BASO % 0.4 % (0-2.0); HEMATOCRIT 39.2 % (32.4-45.2); HEMOGLOBIN 12.3 GM/dL (10.7-15.3); LYMPH % 38.3 % (8-40); MCH 24.4 pg (25.7-33.7); MCHC 31.5 g/dl (32.0-36.0); MEAN CELL VOLUME 77.7 fl (80-96); MEAN PLT VOLUME 8.8 fl (7.5-11.1); MONO % 8.3 % (3.8-10.2); PLATELET COUNT 224 K/MM3 (134-434); RBC 5.05 M/mm3 (3.60-5.2); RDW 17.1 % (11.6-15.6); WHITE BLOOD COUNT 7.3 K/mm3 (4.0-10.0)
[2017-09-17] MEDS: DIVALPROEX SODIUM 500 MG TABLET E.C. PO SCH ×2 (10:21→21:23)
[2017-09-17] MEDS: POTASSIUM CHLORIDE TABS 20 MEQ TABLET.ER (FP) PO SCH ×2 (10:21→17:11)
[2017-09-17] MEDS: amLODIPine BESYLATE 10 MG TABLET (FP) PO SCH (10:22)
[2017-09-17] MEDS: LISINOPRIL 10 MG TABLET (FP) PO SCH (10:22)
[2017-09-17] MEDS: NICOTINE 21 MG/24 HOURS TOPICAL PATCH TD SCH (10:22)
[2017-09-17] MEDS: PRENATAL VITAMINS W/ FOLIC ACID TABLET (FP) PO SCH (10:22)
[2017-09-17] MEDS: SERTRALINE HCL 50 MG TABLET (FP) PO SCH (10:23)
[2017-09-17] MEDS: RANITIDINE HCL 150 MG TABLET (FP) PO SCH ×2 (10:23→21:23)
[2017-09-17 15:07] LABS: ANION GAP 6 (8-16); BLOOD UREA NITROGEN 8 mg/dL (7-18); CALCIUM 8.2 mg/dL (8.5-10.1); CHLORIDE 100 mmol/L (98-107); CO2 34 mmol/L (21-32); CREATININE 0.4 mg/dL (0.55-1.02); GLUCOSE,RANDOM 86 mg/dL (74-106); POTASSIUM 3.6 mmol/L (3.5-5.1); SODIUM 140 mmol/L (136-145)
[2017-09-17] MEDS: THIAMINE HCL 100 MG TABLET (FP) PO SCH (21:23)
[2017-09-17] MEDS: DOCUSATE SODIUM 100 MG CAPSULE (FP) PO SCH (21:23)
[2017-09-17] MEDS: QUEtiapine FUMARATE 200 MG TABLET PO SCH (21:23)
[2017-09-18] MEDS: GABAPENTIN 100 MG CAPSULE (FP) PO SCH ×3 (07:03→21:25)
[2017-09-18] MEDS: metFORMIN HCL 500 MG TABLET (FP) PO SCH (07:03)
[2017-09-18] MEDS: INSULIN SLIDING SCALE (NOVOLOG) 1 VIAL SQ SCH ×2 (07:04→17:07)
[2017-09-18] MEDS: FERROUS SO4 325 MG TABLET (FP) PO SCH ×3 (07:05→17:06)
[2017-09-18] MEDS: NICOTINE POLACRILEX 4 MG GUM BUC PRN ×2 (07:07→12:30)
[2017-09-18] MEDS ORDERED: PT OWN MED DRAWER 7, Y5N ONE ×3 (07:15→15:52)
--- NOTE | 2017-09-18 07:33 | PN ---
[facility] Progress Note Note: Assessed the pt. in her room. A&Ox3. She reported that she got out of bed at 3am using her cane, lost her balance and fell onto her knees. She denied hitting her head. Reports pain is 7/10 to b/l knees. FROM. No bruising noted and skin intact. Tenderness on palpation. Plan: Fall protocol #2 Reinforced fall precautions Tylenol prn Ordered Shilpi
[2017-09-18] MEDS: METHYL SALICYLATE/MENTHOL OINT 30 GM TUBE TP SCH ×2 (10:43→21:26)
[2017-09-18] MEDS: RANITIDINE HCL 150 MG TABLET (FP) PO SCH ×2 (10:43→21:25)
[2017-09-18] MEDS: PRENATAL VITAMINS W/ FOLIC ACID TABLET (FP) PO SCH (10:44)
[2017-09-18] MEDS: DIVALPROEX SODIUM 500 MG TABLET E.C. PO SCH ×2 (10:44→21:25)
[2017-09-18] MEDS: amLODIPine BESYLATE 10 MG TABLET (FP) PO SCH (10:44)
[2017-09-18] MEDS: POTASSIUM CHLORIDE TABS 20 MEQ TABLET.ER (FP) PO SCH (10:45)
[2017-09-18] MEDS: SERTRALINE HCL 50 MG TABLET (FP) PO SCH (10:45)
[2017-09-18] MEDS: LISINOPRIL 10 MG TABLET (FP) PO SCH (10:45)
[2017-09-18] MEDS: AMMONIUM LACTATE 12% LOTION 225 GM BOTTLE TP PRN (10:46)
[2017-09-18] MEDS: NICOTINE 21 MG/24 HOURS TOPICAL PATCH TD SCH (10:47)
--- NOTE | 2017-09-18 15:35 | PN ---
Psychiatric Progress Note Vital Signs: Vital Signs Period Temp Pulse Resp BP Sys/Rosado Pulse Ox Last 24 Hr 97.2 F-98.2 F 93-112 18-18 108-131/75-91 Date of Session: 09/18/17 Chief Complaint:: Discharge visit HPI: Patient addressed Alcohol,Cocaine dependence comorbid with Bipolar II disorder. ROS: HTN,DM. Current Medications: Active Medications Generic Name Dose Route Start Last Admin Trade Name Freq PRN Reason Stop Dose Admin Acetaminophen 650 mg 09/05/17 18:21 09/17/17 10:23 Tylenol - PO 650 mg Q4H PRN Administration PAIN Al Hydroxide/Mg Hydroxide 30 ml 09/05/17 18:21 Mylanta Oral Suspension - PO Q6H PRN DYSPEPSIA Albuterol Sulfate 0 puff 09/05/17 18:22 Ventolin Hfa Inhaler - IH Q4H PRN ASTHMA Amlodipine Besylate 10 mg 09/06/17 10:00 09/18/17 10:44 Norvasc - PO 10 mg DAILY CHIOMA Administration Colloidal Oatmeal 1 applic 09/12/17 14:16 09/17/17 21:25 Aveeno Soap - TP 1 applic BID PRN Administration HYGEINE Divalproex Sodium 500 mg 09/05/17 22:00 09/18/17 10:44 Depakote - PO 500 mg BID CHIOMA Administration Docusate Sodium 300 mg 09/16/17 22:00 09/17/17 21:23 Colace - PO Not Given HS CHIOMA Eucalyptus/Menthol/Phenol/Sorbitol 1 each 09/05/17 18:21 Cepastat Lozenge - MM Q4H PRN SORE THROAT Ferrous Sulfate 325 mg 09/16/17 17:30 09/18/17 12:29 Feosol - PO 325 mg TIDCM CHIOMA Administration Gabapentin 100 mg 09/16/17 16:15 09/18/17 13:10 Neurontin - PO 100 mg TID CHIOMA Administration Guaifenesin 10 ml 09/05/17 18:21 Robitussin Dm - PO Q6H PRN COUGH Insulin Aspart 1 vial 09/07/17 16:30 09/18/17 07:04 Novolog Vial Sliding Scale - SQ Not Given BIDAC CHIOMA Protocol Lactic Acid 1 applic 09/12/17 14:16 09/18/17 10:46 Lac-Hydrin 12 TP 1 applic BID PRN Administration DRY SKIN Lisinopril 10 mg 09/06/17 10:00 09/18/17 10:45 Prinivil PO 10 mg DAILY CHIOMA Administration Loperamide HCl 4 mg 09/05/17 18:21 Imodium - PO Q6H PRN DIARRHEA Magnesium Citrate 300 ml 09/05/17 18:21 Citroma - PO Q48H PRN CONSTIPATION Magnesium Hydroxide 30 ml 09/05/17 18:21 Milk Of Magnesia - PO DAILY PRN CONSTIPATION Metformin HCl 500 mg 09/06/17 07:00 09/18/17 07:03 Glucophage - PO 500 mg DAILY@0700 CHIOMA Administration Methyl Salicylate 1 applic 09/18/17 10:00 09/18/17 10:43 Edgardo-Wen - TP 1 applic BID CHIOMA Administration Nicotine 21 mg 09/06/17 10:00 09/18/17 10:47 Nicoderm Patch - TD Not Given DAILY CHIOMA Nicotine Polacrilex 4 mg 09/05/17 18:21 09/18/17 12:30 Nicorette Gum - BUC 4 mg Q2H PRN Administration NICOTINE REPLACEMENT RX Multivit/Folic Acid/Iron 1 tab 09/06/17 10:00 09/18/17 10:44 Vitamins (Sjr) - PO 1 tab DAILY CHIOMA Administration Pseudoephedrine/Triprolidine 1 combo 09/05/17 18:21 Actifed - PO TID PRN NASAL CONGESTION Quetiapine Fumarate 200 mg 09/05/17 22:00 09/17/17 21:23 Seroquel - PO 200 mg HS CHIOMA Administration Ranitidine HCl 150 mg 09/05/17 22:00 09/18/17 10:43 Zantac - PO 150 mg BID CHIOMA Administration Sertraline HCl 100 mg 09/06/17 10:00 09/18/17 10:45 Zoloft - PO 100 mg DAILY CHIOMA Administration Thiamine HCl 100 mg 09/05/17 22:00 09/17/17 21:23 Vitamin B1 - PO 100 mg HS CHIOMA Administration Current Side Effect: No Lab tests ordered: No Lab tests reviewed: Yes Provider note:: Patient will complete this program tomorrow 09/19/17.She has met her treatment goals and will continue to address her issues on outpatient basis at [facility].Patient continues to find that current medications :Seroquel 200 mg po hs,Neurontin 100 mg po tid,Zoloft 100 mg po daily,Depakote 500 mg po bid help to cope with depression,mood instability.insomnia.Scripts for 30 days provided. Supportive therapy provided focusing on relapse prevention. Patient is stable for discharge tomorrow . Mental Status Exam - Mental Status Exam Alert and Oriented to: Time, Place, Person Cognitive Function: Grossly Intact Patient Appearance: Well Groomed Mood: Euthymic Affect: Appropriate, Mood Congruent Patient Behavior: Cooperative Speech Pattern: Clear Voice Loudness: Normal Thought Process: Goal Oriented Thought Disorder: Being Controlled Hallucinations: Denies Suicidal Ideation: Denies Homicidal Ideation: Denies Insight/Judgement: Fair Sleep: Fair Appetite: Fair Muscle strength/Tone: Normal Gait/Station: Normal Psychiatric Treatment Plan - Problem List (1) Cocaine dependence, uncomplicated Current Visit: Yes (2) Asthma Current Visit: Yes Qualifiers: Asthma severity: mild Asthma persistence: intermittent Asthma complication type: with status asthmaticus Qualified Code(s): J45.22 - Mild intermittent asthma with status asthmaticus (3) Diabetes mellitus type II, non insulin dependent Current Visit: Yes (4) Hypertension Current Visit: Yes Qualifiers: Hypertension type: essential hypertension Qualified Code(s): I10 - Essential (primary) hypertension (5) Bipolar II disorder Current Visit: Yes (6) GERD (gastroesophageal reflux disease) Current Visit: Yes Qualifiers: Esophagitis presence: without esophagitis Qualified Code(s): K21.9 - Gastro -esophageal reflux disease without esophagitis (7) Nicotine dependence Current Visit: Yes Qualifiers: Nicotine product type: cigarettes Substance use status: in withdrawal Qualified Code(s): F17.213 - Nicotine dependence, cigarettes, with withdrawal (8) Alcohol dependence Current Visit: Yes
[2017-09-18] MEDS: THIAMINE HCL 100 MG TABLET (FP) PO SCH (21:25)
[2017-09-18] MEDS: DOCUSATE SODIUM 100 MG CAPSULE (FP) PO SCH (21:25)
[2017-09-18] MEDS: QUEtiapine FUMARATE 200 MG TABLET PO SCH (21:25)
[2017-09-19] MEDS: GABAPENTIN 100 MG CAPSULE (FP) PO SCH (07:12)
[2017-09-19] MEDS: NICOTINE POLACRILEX 4 MG GUM BUC PRN ×2 (07:12→09:30)
[2017-09-19] MEDS: metFORMIN HCL 500 MG TABLET (FP) PO SCH (07:12)
[2017-09-19] MEDS: FERROUS SO4 325 MG TABLET (FP) PO SCH (07:12)
[2017-09-19] MEDS: INSULIN SLIDING SCALE (NOVOLOG) 1 VIAL SQ SCH (07:35)
[2017-09-19 07:38] VITALS: TEMP 97.2
[2017-09-19] MEDS ORDERED: PT OWN MED DRAWER 7, Y5N ONE (07:58)
[2017-09-19] MEDS: NICOTINE 21 MG/24 HOURS TOPICAL PATCH TD SCH (09:29)
[2017-09-19] MEDS: METHYL SALICYLATE/MENTHOL OINT 30 GM TUBE TP SCH (09:29)
[2017-09-19] MEDS: LISINOPRIL 10 MG TABLET (FP) PO SCH (09:29)
[2017-09-19] MEDS: amLODIPine BESYLATE 10 MG TABLET (FP) PO SCH (09:29)
[2017-09-19] MEDS: DIVALPROEX SODIUM 500 MG TABLET E.C. PO SCH (09:29)
[2017-09-19] MEDS: SERTRALINE HCL 50 MG TABLET (FP) PO SCH (09:30)
[2017-09-19] MEDS: PRENATAL VITAMINS W/ FOLIC ACID TABLET (FP) PO SCH (09:30)
[2017-09-19] MEDS: RANITIDINE HCL 150 MG TABLET (FP) PO SCH (09:30)
[2017-09-19 10:18] VITALS: BP 148/84; PULSE 103
== END 2017-09-19 09:45 | disposition home or self-care (01) | DRG 772 ==
LOC: YASAS 14:27 → Y3E 18:12
PROVIDERS: ADMIT Psychiatry & Neurology Psychiatry; ATTEND Psychiatry & Neurology Psychiatry
PROC: HZ42ZZZ Group Counseling for Substance Abuse Treatment, Cognitive-Behavioral (ICD-10-PCS; principal; 2017-09-05)
DX: F10.20 Alcohol dependence, uncomplicated (principal); F14.20 Cocaine dependence, uncomplicated; F17.213 Nicotine dependence, cigarettes, with withdrawal; F31.81 Bipolar II disorder; E11.9 Type 2 diabetes mellitus without complications; Z79.84 Long term (current) use of oral hypoglycemic drugs; K21.9 Gastro-esophageal reflux disease without esophagitis; J45.22 Mild intermittent asthma with status asthmaticus
CPT/HCPCS: 36415; 80048; 80053; 80164; 81003; 81015; 82962; 84132; 85025; 85027; 86593; 86803; 87086; 87389; 93005; 93010